=== PATIENT | male | born 2000 | race Caucasian/White ===

== ENCOUNTER 2020-12-30 08:44 | Outpatient (CLI) | payer BC | END 2020-12-30 08:45 | disposition home or self-care (01) | LOC: CSHWCC 08:44 | PROVIDERS: ATTEND Nurse Practitioner Family | DX: T22.011A Burn of unspecified degree of right forearm, initial encounter (principal); T22.031A Burn of unspecified degree of right upper arm, initial encounter; T24.031A Burn of unspecified degree of right lower leg, initial encounter; T30.0 Burn of unspecified body region, unspecified degree; X03.0XXA Exposure to flames in controlled fire, not in building or structure, initial encounter | CPT/HCPCS: 99212; G0463 ==

== ENCOUNTER 2021-01-06 08:22 | Outpatient (CLI) | payer BC | END 2021-01-06 08:23 | disposition home or self-care (01) | LOC: CSHWCC 08:22 | PROVIDERS: ATTEND Nurse Practitioner Family | DX: T22.011D Burn of unspecified degree of right forearm, subsequent encounter (principal); T22.031D Burn of unspecified degree of right upper arm, subsequent encounter; T24.031D Burn of unspecified degree of right lower leg, subsequent encounter; G89.11 Acute pain due to trauma; T30.0 Burn of unspecified body region, unspecified degree; X03.0XXD Exposure to flames in controlled fire, not in building or structure, subsequent encounter | CPT/HCPCS: 99212; G0463 ==